=== PATIENT | female | born 1975 | race Caucasian/White ===

== ENCOUNTER 2023-02-05 09:24 | Outpatient (CLI) | payer OTHER ==
[~2023-02-05 09:24] MED LIST: CIPRO750 MG PO; NABUMETONE750 MG PO; PREDNISONE5 MG/DOSE- PO; PROPANOLOL; TAPAZOLE10 MG PO
== END 2023-02-05 09:33 | disposition home or self-care (01) ==
LOC: TOM 09:24
PROVIDERS: ATTEND Family Medicine Geriatric Medicine
DX: R59.9 Enlarged lymph nodes, unspecified (principal)